=== PATIENT | male | born 1950 | race African-American/Black ===

== ENCOUNTER 2021-10-21 17:17 | Inpatient (IN) ==
[2021-10-21] MEDS ORDERED: ACETAMINOPHEN 325 MG TABLET PO PRN (20:37)
[2021-10-21] MEDS ORDERED: GLUCAGON 1 MG VIAL IM PRN (20:37)
[2021-10-21] MEDS ORDERED: DEXTROSE 10% 250 ML BAG IV PRN (20:51)
[2021-10-21] MEDS ORDERED: ENOXAPARIN 30 MG/0.3 ML SYRINGE SUBCUT SCH (21:00)
[2021-10-21] MEDS: DOCUSATE SODIUM 100 MG CAPSULE PO SCH (23:02)
[2021-10-22 01:00] LABS: Basophils % 0.2 % (0.0-0.8); Eosinophils % 0.7 % (0.00-10.9); Hematocrit 20.7 VOL% (42.0-52.0); Hemoglobin 6.9 GM/DL (14.0-18.0); Immature Granulocytes % 0.9 %; Immature Granulocytes Absolute 0.04 #; Lymphocytes # 0.8 10*3/uL (1.4-4.0); Lymphocytes % 17.9 % (21.2-54.2); Mean Corpuscular HGB Conc 33.3 GM/DL (32-36); Mean Corpuscular Volume 90.4 FL (87-102); Mean Platelet Volume 10.8 FL (9.6-12.0); Monocytes # 0.4 10*3/uL (0.11-0.8); Monocytes % 9.9 % (1.7-12.7); Neutrophils % 70.4 % (38.7-73.9); Platelet Count 113 T/CUMM (130-400); Red Blood Count 2.29 MC/CUMM (3.8-5.5); Red Cell Distribution Width 14.3 % (9.3-17.3); White Blood Count 4.4 T/CUMM (4-12)
[2021-10-22 01:26] LABS: Albumin 2.9 G/DL (3.4-5.0); Calcium 8.8 MG/DL (8.5-10.1); Phosphorous 6.3 MG/DL (2.5-4.9); Potassium 4.1 MMOL/L (3.5-5.1)
[2021-10-22 01:30] LABS: % Iron Saturation 19.4 % (18-50); Ferritin 1311.2 ng/mL (26-388)
[2021-10-22 01:35] LABS: Thyroid Stimulating Hormone 0.231 uIU/ml (0.358-3.74)
[2021-10-22 03:25] LABS: Folate 7.61 NG/ML (5.38-24.0); Vitamin B12 > 2000 PG/ML (211-911)
[2021-10-22 03:59] LABS: Hepatitis B Surface Ab Result Non-Reactive (NonReactive); Hepatitis B Surface Ag Quant < 0.10 Index; Hepatitis B Surface Ag Result Non-Reactive (NonReactive); Hepatitis C Virus Ab Quant 0.08 Index; Hepatitis C Virus Ab Result Non-Reactive (NonReactive)
[2021-10-22] MEDS: PANTOPRAZOLE 40 MG TABLET PO SCH (09:33)
[2021-10-22] MEDS: amLODIPine 10 MG TABLET PO SCH (09:33)
[2021-10-22] MEDS: hydroCHLOROthiazide 12.5 MG CAPSULE PO SCH (09:33)
[2021-10-22] MEDS: LOSARTAN 50 MG TABLET PO SCH (09:33)
[2021-10-22] MEDS: ROSUVASTATIN 20 MG TABLET PO SCH (09:33)
[2021-10-22] MEDS: allopurinoL 300 MG TABLET PO SCH (09:33)
[2021-10-22] MEDS: ALFUZOSIN 10 MG TABLET PO SCH (09:34)
[2021-10-22] MEDS: carvediloL 25 MG TABLET PO SCH ×2 (09:34→18:05)
[2021-10-22] MEDS: DOCUSATE SODIUM 100 MG CAPSULE PO SCH ×2 (09:34→22:29)
[2021-10-22 09:35] LABS: Mucus,Urine Occasional /LPF (Occasional); RBC,Urine 1 /HPF (0-4); Urine Appearance Clear (Clear); Urine Color Yellow (Yellow); Urine pH 5.5 (4.5-8.0)
[2021-10-22 09:36] LABS: Bilirubin,Urine Negative (Negative); Blood, Urine Small mg/dL (Negative); Glucose,Urine (UA) Negative (Negative); Ketones,Urine Negative (Negative); Nitrite,Urine Negative (Negative); Protein,Urine >=300 mg/dL (Negative); Urine Urobilinogen 0.2 eU/dL (<2.0)
[2021-10-22 13:07] LABS: Hematocrit 26.9 VOL% (42.0-52.0); Hemoglobin 8.9 GM/DL (14.0-18.0)
[2021-10-22] MEDS ORDERED: ENOXAPARIN 60 MG/0.6 ML SYRINGE SUBCUT SCH (21:00)
[2021-10-23 06:06] LABS: Basophils % 0.4 % (0.0-0.8); Eosinophils # 0.1 10*3/uL (0.0-0.87); Eosinophils % 1.5 % (0.00-10.9); Hematocrit 24.1 VOL% (42.0-52.0); Immature Granulocytes % 0.8 %; Immature Granulocytes Absolute 0.04 #; Lymphocytes # 0.8 10*3/uL (1.4-4.0); Lymphocytes % 16.6 % (21.2-54.2); Mean Corpuscular HGB Conc 33.2 GM/DL (32-36); Mean Corpuscular Volume 89.9 FL (87-102); Mean Platelet Volume 10.9 FL (9.6-12.0); Monocytes # 0.5 10*3/uL (0.11-0.8); Monocytes % 10.8 % (1.7-12.7); Neutrophils % 69.9 % (38.7-73.9); Platelet Count 112 T/CUMM (130-400); Red Blood Count 2.68 MC/CUMM (3.8-5.5); White Blood Count 4.7 T/CUMM (4-12)
[2021-10-23 06:27] LABS: Albumin 2.8 G/DL (3.4-5.0); Bilirubin,Total 0.6 MG/DL (0.20-1.00); Calcium 8.7 MG/DL (8.5-10.1); Osmolality,Calculated 301.7 MOS/KG (273-304); Potassium 3.8 MMOL/L (3.5-5.1); Total Protein 6.7 G/DL (6.4-8.2)
[2021-10-23 06:56] LABS: Free T4 (Free Thyroxine) 0.87 NG/DL (0.76-1.46); Total Protein 6.6 G/DL (6.4-8.2)
[2021-10-23] MEDS: ROSUVASTATIN 20 MG TABLET PO SCH (09:50)
[2021-10-23] MEDS: PANTOPRAZOLE 40 MG TABLET PO SCH (09:51)
[2021-10-23] MEDS: LOSARTAN 50 MG TABLET PO SCH (09:51)
[2021-10-23] MEDS: allopurinoL 300 MG TABLET PO SCH (09:51)
[2021-10-23] MEDS: DOCUSATE SODIUM 100 MG CAPSULE PO SCH ×2 (09:51→20:42)
[2021-10-23] MEDS: amLODIPine 10 MG TABLET PO SCH (09:51)
[2021-10-23] MEDS: carvediloL 25 MG TABLET PO SCH ×2 (09:52→17:26)
[2021-10-23] MEDS: ALFUZOSIN 10 MG TABLET PO SCH (09:52)
[2021-10-23] MEDS: hydroCHLOROthiazide 12.5 MG CAPSULE PO SCH (09:55)
[2021-10-23] MEDS: SEVELAMER CARBONATE 800 MG TABLET PO SCH (17:26)
[2021-10-23] MEDS: APIXABAN 5 MG TABLET PO SCH (20:42)
[2021-10-23] MEDS ORDERED: APIXABAN 5 MG TABLET PO SCH (21:00)
[2021-10-24 06:38] LABS: Basophils % 0.2 % (0.0-0.8); Eosinophils % 0.6 % (0.00-10.9); Hematocrit 24.1 VOL% (42.0-52.0); Hemoglobin 8.1 GM/DL (14.0-18.0); Immature Granulocytes % 0.8 %; Immature Granulocytes Absolute 0.04 #; Lymphocytes # 0.7 10*3/uL (1.4-4.0); Lymphocytes % 13.3 % (21.2-54.2); Mean Corpuscular HGB Conc 33.6 GM/DL (32-36); Mean Corpuscular Volume 90.3 FL (87-102); Mean Platelet Volume 12.9 FL (9.6-12.0); Monocytes # 0.5 10*3/uL (0.11-0.8); Monocytes % 9.7 % (1.7-12.7); Neutrophils % 75.4 % (38.7-73.9); Platelet Count 144 T/CUMM (130-400); Red Blood Count 2.67 MC/CUMM (3.8-5.5); Red Cell Distribution Width 14.1 % (9.3-17.3); White Blood Count 5.2 T/CUMM (4-12)
[2021-10-24 06:42] LABS: Calcium 8.9 MG/DL (8.5-10.1); Osmolality,Calculated 307.5 MOS/KG (273-304); Potassium 3.9 MMOL/L (3.5-5.1)
[2021-10-24] MEDS: SEVELAMER CARBONATE 800 MG TABLET PO SCH ×3 (09:34→17:28)
[2021-10-24] MEDS: DOCUSATE SODIUM 100 MG CAPSULE PO SCH ×2 (09:34→20:38)
[2021-10-24] MEDS: ALFUZOSIN 10 MG TABLET PO SCH (09:34)
[2021-10-24] MEDS: LOSARTAN 50 MG TABLET PO SCH (09:34)
[2021-10-24] MEDS: PANTOPRAZOLE 40 MG TABLET PO SCH (09:35)
[2021-10-24] MEDS: APIXABAN 5 MG TABLET PO SCH ×2 (09:35→20:39)
[2021-10-24] MEDS: allopurinoL 300 MG TABLET PO SCH (09:35)
[2021-10-24] MEDS: carvediloL 25 MG TABLET PO SCH ×2 (09:35→17:28)
[2021-10-24] MEDS: hydroCHLOROthiazide 12.5 MG CAPSULE PO SCH (09:35)
[2021-10-24] MEDS: amLODIPine 10 MG TABLET PO SCH (09:35)
[2021-10-24] MEDS: ROSUVASTATIN 20 MG TABLET PO SCH (12:36)
[2021-10-25 05:04] LABS: Basophils % 0.4 % (0.0-0.8); Eosinophils # 0.1 10*3/uL (0.0-0.87); Eosinophils % 1.7 % (0.00-10.9); Hematocrit 23.1 VOL% (42.0-52.0); Hemoglobin 7.5 GM/DL (14.0-18.0); Immature Granulocytes % 0.8 %; Immature Granulocytes Absolute 0.04 #; Lymphocytes # 0.8 10*3/uL (1.4-4.0); Lymphocytes % 17.7 % (21.2-54.2); Mean Corpuscular HGB Conc 32.5 GM/DL (32-36); Mean Corpuscular Volume 90.9 FL (87-102); Mean Platelet Volume 13.3 FL (9.6-12.0); Monocytes # 0.5 10*3/uL (0.11-0.8); Monocytes % 10.8 % (1.7-12.7); Neutrophils % 68.6 % (38.7-73.9); Platelet Count 134 T/CUMM (130-400); Red Blood Count 2.54 MC/CUMM (3.8-5.5); White Blood Count 4.7 T/CUMM (4-12)
[2021-10-25 05:16] LABS: Calcium 8.7 MG/DL (8.5-10.1); Osmolality,Calculated 308.5 MOS/KG (273-304); Potassium 4.2 MMOL/L (3.5-5.1)
[2021-10-25] MEDS: hydroCHLOROthiazide 12.5 MG CAPSULE PO SCH (08:37)
[2021-10-25] MEDS: SEVELAMER CARBONATE 800 MG TABLET PO SCH ×3 (08:37→16:16)
[2021-10-25] MEDS: ROSUVASTATIN 20 MG TABLET PO SCH (08:37)
[2021-10-25] MEDS: carvediloL 25 MG TABLET PO SCH ×2 (08:37→16:16)
[2021-10-25] MEDS: DOCUSATE SODIUM 100 MG CAPSULE PO SCH ×2 (08:37→22:43)
[2021-10-25] MEDS: ALFUZOSIN 10 MG TABLET PO SCH (08:38)
[2021-10-25] MEDS: allopurinoL 300 MG TABLET PO SCH (08:38)
[2021-10-25] MEDS: PANTOPRAZOLE 40 MG TABLET PO SCH (08:38)
[2021-10-25] MEDS: amLODIPine 10 MG TABLET PO SCH (08:38)
[2021-10-25] MEDS: LOSARTAN 50 MG TABLET PO SCH (08:38)
[2021-10-25 09:39] LABS: Protein/Creatinine Ratio,Urine 1.7 RATIO
[2021-10-25] MEDS: APIXABAN 5 MG TABLET PO SCH ×2 (11:31→22:43)
[2021-10-26 06:24] LABS: Basophils % 0.2 % (0.0-0.8); Eosinophils # 0.1 10*3/uL (0.0-0.87); Eosinophils % 2.1 % (0.00-10.9); Hematocrit 23.7 VOL% (42.0-52.0); Hemoglobin 7.7 GM/DL (14.0-18.0); Immature Granulocytes % 0.6 %; Immature Granulocytes Absolute 0.03 #; Lymphocytes # 0.9 10*3/uL (1.4-4.0); Lymphocytes % 17.7 % (21.2-54.2); Mean Corpuscular HGB Conc 32.5 GM/DL (32-36); Mean Corpuscular Volume 90.5 FL (87-102); Mean Platelet Volume 11.3 FL (9.6-12.0); Monocytes # 0.5 10*3/uL (0.11-0.8); Monocytes % 9.9 % (1.7-12.7); Neutrophils % 69.5 % (38.7-73.9); Platelet Count 123 T/CUMM (130-400); Red Blood Count 2.62 MC/CUMM (3.8-5.5); Red Cell Distribution Width 14.1 % (9.3-17.3); White Blood Count 4.9 T/CUMM (4-12)
[2021-10-26 06:59] LABS: Calcium 8.9 MG/DL (8.5-10.1); Osmolality,Calculated 305.7 MOS/KG (273-304); Potassium 4.2 MMOL/L (3.5-5.1)
[2021-10-26 07:15] LABS: Random Urine Protein (Bench) 350 MG/DL (<11.9)
[2021-10-26 07:15] LABS: Immunoglobulin A (Chem) 335 MG/DL (70-400); Immunoglobulin G (Chem) 1580 MG/DL (700-1600); Immunoglobulin M (Chem) 52 MG/DL (40-230); Total Protein (Chem) 6.6 G/DL (6.4-8.3)
[2021-10-26] MEDS: ROSUVASTATIN 20 MG TABLET PO SCH (08:31)
[2021-10-26] MEDS: ALFUZOSIN 10 MG TABLET PO SCH (08:32)
[2021-10-26] MEDS: PANTOPRAZOLE 40 MG TABLET PO SCH (08:32)
[2021-10-26] MEDS: LOSARTAN 50 MG TABLET PO SCH (08:32)
[2021-10-26] MEDS: hydroCHLOROthiazide 12.5 MG CAPSULE PO SCH (08:32)
[2021-10-26] MEDS: DOCUSATE SODIUM 100 MG CAPSULE PO SCH ×2 (08:32→22:00)
[2021-10-26] MEDS: allopurinoL 300 MG TABLET PO SCH (08:33)
[2021-10-26] MEDS: SEVELAMER CARBONATE 800 MG TABLET PO SCH ×3 (08:33→17:22)
[2021-10-26] MEDS: amLODIPine 10 MG TABLET PO SCH (08:33)
[2021-10-26] MEDS: carvediloL 25 MG TABLET PO SCH ×2 (08:33→17:22)
[2021-10-26] MEDS: APIXABAN 5 MG TABLET PO SCH ×2 (08:33→22:00)
[2021-10-26 09:57] LABS: Albumin (SPE) 3.7 G/DL (3.2-5.3); Albumin (SPE) Rel % 55.4 %; Alpha 1 (SPE) 0.3 G/DL (0.1-0.4); Alpha 1 (SPE) Rel % 4.3 %; Alpha 2 (SPE) 0.6 G/DL (0.4-1.0); Alpha 2 (SPE) Rel % 8.5 %; Beta (SPE) 0.8 G/DL (0.5-1.1); Beta (SPE) Rel % 12.2 %; Gamma (SPE) Rel % 19.6 %
[2021-10-26 10:02] LABS: Albumin (UPER) 264.2 MG/DL; Albumin (UPER) Rel% 75.5 %; Alpha 1 (UPER) 15.8 MG/DL; Alpha 1 (UPER) Rel% 4.5 %; Alpha 2 (UPER) 6.7 MG/DL; Alpha 2 (UPER) Rel % 1.9 %; Beta (UPER) Rel % 3.7 %; Gamma (UPER) Rel % 14.4 %
[2021-10-26 10:03] LABS: Gamma (SPE) 1.3 G/DL (0.7-1.7)
[2021-10-26 10:30] LABS: Gamma (UPER) 50.4 MG/DL
[2021-10-27 04:40] LABS: Basophils % 0.2 % (0.0-0.8); Eosinophils # 0.1 10*3/uL (0.0-0.87); Eosinophils % 1.8 % (0.00-10.9); Hematocrit 22.1 VOL% (42.0-52.0); Hemoglobin 7.3 GM/DL (14.0-18.0); Immature Granulocytes % 0.7 %; Immature Granulocytes Absolute 0.03 #; Lymphocytes # 0.7 10*3/uL (1.4-4.0); Mean Corpuscular Volume 90.2 FL (87-102); Mean Platelet Volume 10.5 FL (9.6-12.0); Monocytes # 0.5 10*3/uL (0.11-0.8); Monocytes % 10.6 % (1.7-12.7); Neutrophils % 71.7 % (38.7-73.9); Platelet Count 113 T/CUMM (130-400); Red Blood Count 2.45 MC/CUMM (3.8-5.5); Red Cell Distribution Width 13.8 % (9.3-17.3); White Blood Count 4.3 T/CUMM (4-12)
[2021-10-27 05:16] LABS: Calcium 8.6 MG/DL (8.5-10.1); Osmolality,Calculated 312.7 MOS/KG (273-304); Potassium 4.5 MMOL/L (3.5-5.1)
[2021-10-27] MEDS: hydroCHLOROthiazide 12.5 MG CAPSULE PO SCH (09:04)
[2021-10-27] MEDS: ALFUZOSIN 10 MG TABLET PO SCH (09:04)
[2021-10-27] MEDS: DOCUSATE SODIUM 100 MG CAPSULE PO SCH ×2 (09:04→21:45)
[2021-10-27] MEDS: APIXABAN 5 MG TABLET PO SCH ×2 (09:04→21:46)
[2021-10-27] MEDS: allopurinoL 300 MG TABLET PO SCH (09:04)
[2021-10-27] MEDS: ROSUVASTATIN 20 MG TABLET PO SCH (09:04)
[2021-10-27] MEDS: carvediloL 25 MG TABLET PO SCH ×2 (09:04→16:47)
[2021-10-27] MEDS: PANTOPRAZOLE 40 MG TABLET PO SCH (09:04)
[2021-10-27] MEDS: SEVELAMER CARBONATE 800 MG TABLET PO SCH ×3 (09:04→16:47)
[2021-10-27] MEDS: LOSARTAN 50 MG TABLET PO SCH (09:05)
[2021-10-27] MEDS: amLODIPine 10 MG TABLET PO SCH (09:05)
[2021-10-27 12:15] LABS: Kappa Free Light Chain 24.8 mg/dL; Lambda Free Light Chain 17.4 mg/dL
[2021-10-28 04:42] LABS: Basophils % 0.2 % (0.0-0.8); Eosinophils # 0.1 10*3/uL (0.0-0.87); Eosinophils % 1.4 % (0.00-10.9); Hematocrit 21.2 VOL% (42.0-52.0); Immature Granulocytes % 0.5 %; Immature Granulocytes Absolute 0.02 #; Lymphocytes # 0.9 10*3/uL (1.4-4.0); Lymphocytes % 20.2 % (21.2-54.2); Mean Platelet Volume 10.6 FL (9.6-12.0); Monocytes # 0.5 10*3/uL (0.11-0.8); Monocytes % 10.4 % (1.7-12.7); Neutrophils % 67.3 % (38.7-73.9); Platelet Count 111 T/CUMM (130-400); Red Blood Count 2.33 MC/CUMM (3.8-5.5); Red Cell Distribution Width 13.9 % (9.3-17.3); White Blood Count 4.3 T/CUMM (4-12)
[2021-10-28 05:12] LABS: Calcium 8.7 MG/DL (8.5-10.1); Osmolality,Calculated 308.8 MOS/KG (273-304); Potassium 4.6 MMOL/L (3.5-5.1)
[2021-10-28] MEDS ORDERED: SODIUM CHLORIDE 0.9% 250 ML IV SCH (11:00)
[2021-10-28] MEDS ORDERED: propofoL 200 MG/20 ML VIAL IV ONE (11:29)
[2021-10-28] MEDS ORDERED: MIDAZOLAM 2 MG/2 ML VIAL ONE (11:29)
[2021-10-28] MEDS ORDERED: LIDOCAINE 2% 5 ML VIAL ONE (11:29)
[2021-10-28] MEDS ORDERED: fentaNYL 100 MCG/2 ML VIAL ONE (11:29)
[2021-10-28] MEDS ORDERED: BUPIVACAINE MPF 0.25% 10 ML VIAL ONE (11:46)
[2021-10-28] MEDS ORDERED: TISSUE ADHESIVE 1 EACH APPLICATOR TOP ONE (11:46)
[2021-10-28] MEDS ORDERED: LIDOCAINE 1%/EPI INJ 20 ML VIAL ONE (11:46)
[2021-10-28] MEDS ORDERED: HEPARIN 5,000 UNIT/1 ML VIAL ONE (12:10)
[2021-10-28] MEDS ORDERED: ONDANSETRON 4 MG/2 ML VIAL ONE (12:24)
[2021-10-28] MEDS ORDERED: ceFAZolin 1,000 MG VIAL ONE (12:24)
[2021-10-28] MEDS ORDERED: ETOMIDATE 40 MG/20 ML VIAL IV ONE (12:33)
[2021-10-28] MEDS ORDERED: PHENYLEPHRINE 1 MG/10 ML SYRINGE IV ONE (12:33)
[2021-10-28] MEDS: carvediloL 25 MG TABLET PO SCH ×2 (13:17→18:54)
[2021-10-28] MEDS: SEVELAMER CARBONATE 800 MG TABLET PO SCH ×3 (13:17→18:54)
[2021-10-28] MEDS ORDERED: HEPARIN 10,000 UNIT/10 ML VIAL IV PRN (15:25)
[2021-10-28] MEDS: APIXABAN 5 MG TABLET PO SCH ×2 (17:15→21:14)
[2021-10-28] MEDS: DOCUSATE SODIUM 100 MG CAPSULE PO SCH ×2 (17:15→21:14)
[2021-10-28] MEDS: allopurinoL 300 MG TABLET PO SCH (18:54)
[2021-10-28] MEDS: hydroCHLOROthiazide 12.5 MG CAPSULE PO SCH (18:54)
[2021-10-28] MEDS: ROSUVASTATIN 20 MG TABLET PO SCH (18:54)
[2021-10-28] MEDS: ALFUZOSIN 10 MG TABLET PO SCH (18:54)
[2021-10-28] MEDS: amLODIPine 10 MG TABLET PO SCH (18:54)
[2021-10-28] MEDS: LOSARTAN 50 MG TABLET PO SCH (18:55)
[2021-10-28] MEDS: PANTOPRAZOLE 40 MG TABLET PO SCH (18:55)
[2021-10-28] MEDS: cilostazoL 50 MG TABLET PO SCH (21:14)
[2021-10-29 04:26] LABS: Basophils % 0.2 % (0.0-0.8); Eosinophils # 0.1 10*3/uL (0.0-0.87); Eosinophils % 1.8 % (0.00-10.9); Hematocrit 22.8 VOL% (42.0-52.0); Hemoglobin 7.5 GM/DL (14.0-18.0); Immature Granulocytes % 0.7 %; Immature Granulocytes Absolute 0.03 #; Lymphocytes # 0.8 10*3/uL (1.4-4.0); Lymphocytes % 18.6 % (21.2-54.2); Mean Corpuscular HGB Conc 32.9 GM/DL (32-36); Mean Corpuscular Volume 90.5 FL (87-102); Mean Platelet Volume 11.4 FL (9.6-12.0); Monocytes # 0.5 10*3/uL (0.11-0.8); Monocytes % 12.1 % (1.7-12.7); Neutrophils % 66.6 % (38.7-73.9); Platelet Count 119 T/CUMM (130-400); Red Blood Count 2.52 MC/CUMM (3.8-5.5); Red Cell Distribution Width 13.9 % (9.3-17.3); White Blood Count 4.5 T/CUMM (4-12)
[2021-10-29 04:41] LABS: Calcium 8.3 MG/DL (8.5-10.1); Osmolality,Calculated 295.7 MOS/KG (273-304); Potassium 4.9 MMOL/L (3.5-5.1)
[2021-10-29] MEDS: SEVELAMER CARBONATE 800 MG TABLET PO SCH ×3 (12:12→16:10)
[2021-10-29] MEDS: APIXABAN 5 MG TABLET PO SCH ×2 (12:26→20:11)
[2021-10-29] MEDS: allopurinoL 300 MG TABLET PO SCH (12:26)
[2021-10-29] MEDS: ALFUZOSIN 10 MG TABLET PO SCH (12:26)
[2021-10-29] MEDS: PANTOPRAZOLE 40 MG TABLET PO SCH (12:26)
[2021-10-29] MEDS: cilostazoL 50 MG TABLET PO SCH ×2 (12:26→20:11)
[2021-10-29] MEDS: carvediloL 25 MG TABLET PO SCH ×2 (12:26→16:10)
[2021-10-29] MEDS: amLODIPine 10 MG TABLET PO SCH (12:27)
[2021-10-29] MEDS: DOCUSATE SODIUM 100 MG CAPSULE PO SCH ×2 (12:27→20:11)
[2021-10-29] MEDS: hydroCHLOROthiazide 12.5 MG CAPSULE PO SCH (12:27)
[2021-10-29] MEDS: ROSUVASTATIN 20 MG TABLET PO SCH (12:27)
[2021-10-29] MEDS: LOSARTAN 50 MG TABLET PO SCH (12:27)
[2021-10-30 05:40] LABS: Basophils % 0.2 % (0.0-0.8); Eosinophils # 0.1 10*3/uL (0.0-0.87); Eosinophils % 1.9 % (0.00-10.9); Hematocrit 22.3 VOL% (42.0-52.0); Hemoglobin 7.3 GM/DL (14.0-18.0); Immature Granulocytes Absolute 0.04 #; Lymphocytes # 0.9 10*3/uL (1.4-4.0); Lymphocytes % 21.2 % (21.2-54.2); Mean Corpuscular HGB Conc 32.7 GM/DL (32-36); Mean Platelet Volume 11.9 FL (9.6-12.0); Monocytes # 0.5 10*3/uL (0.11-0.8); Monocytes % 12.4 % (1.7-12.7); Neutrophils % 63.3 % (38.7-73.9); Platelet Count 110 T/CUMM (130-400); Red Blood Count 2.45 MC/CUMM (3.8-5.5); White Blood Count 4.1 T/CUMM (4-12)
[2021-10-30 05:55] LABS: Calcium 8.6 MG/DL (8.5-10.1); Osmolality,Calculated 287.5 MOS/KG (273-304); Potassium 4.2 MMOL/L (3.5-5.1)
[2021-10-30] MEDS: SEVELAMER CARBONATE 800 MG TABLET PO SCH ×3 (08:39→16:28)
[2021-10-30] MEDS: PANTOPRAZOLE 40 MG TABLET PO SCH (14:15)
[2021-10-30] MEDS: LOSARTAN 50 MG TABLET PO SCH ×2 (14:15→14:34)
[2021-10-30] MEDS: APIXABAN 5 MG TABLET PO SCH ×2 (14:16→20:47)
[2021-10-30] MEDS: ROSUVASTATIN 20 MG TABLET PO SCH (14:16)
[2021-10-30] MEDS: ALFUZOSIN 10 MG TABLET PO SCH (14:16)
[2021-10-30] MEDS: DOCUSATE SODIUM 100 MG CAPSULE PO SCH ×2 (14:16→20:47)
[2021-10-30] MEDS: amLODIPine 10 MG TABLET PO SCH ×2 (14:16→14:34)
[2021-10-30] MEDS: carvediloL 25 MG TABLET PO SCH ×3 (14:16→16:28)
[2021-10-30] MEDS: hydroCHLOROthiazide 12.5 MG CAPSULE PO SCH (14:17)
[2021-10-30] MEDS: allopurinoL 300 MG TABLET PO SCH (14:17)
[2021-10-30] MEDS: cilostazoL 50 MG TABLET PO SCH ×2 (14:19→20:47)
[2021-10-30] MEDS ORDERED: MAGNESIUM HYDROXIDE SUSP 30 ML UDCUP PO PRN (14:35)
[2021-10-30] MEDS: POLYETHYLENE GLYCOL POWDER 17 GM PACK PO SCH (14:55)
[2021-10-31 05:13] LABS: Eosinophils % 0.4 % (0.00-10.9); Hematocrit 24.1 VOL% (42.0-52.0); Hemoglobin 7.9 GM/DL (14.0-18.0); Immature Granulocytes % 0.6 %; Immature Granulocytes Absolute 0.03 #; Lymphocytes # 0.9 10*3/uL (1.4-4.0); Lymphocytes % 18.8 % (21.2-54.2); Mean Corpuscular HGB Conc 32.8 GM/DL (32-36); Mean Corpuscular Volume 90.9 FL (87-102); Mean Platelet Volume 12.9 FL (9.6-12.0); Monocytes # 0.5 10*3/uL (0.11-0.8); Monocytes % 10.6 % (1.7-12.7); Neutrophils % 69.6 % (38.7-73.9); Platelet Count 134 T/CUMM (130-400); Red Blood Count 2.65 MC/CUMM (3.8-5.5); Red Cell Distribution Width 13.9 % (9.3-17.3); White Blood Count 4.6 T/CUMM (4-12)
[2021-10-31 05:46] LABS: Calcium 9.2 MG/DL (8.5-10.1); Osmolality,Calculated 281.7 MOS/KG (273-304); Potassium 5.1 MMOL/L (3.5-5.1)
[2021-10-31] MEDS: SEVELAMER CARBONATE 800 MG TABLET PO SCH ×3 (08:54→16:25)
[2021-10-31] MEDS: carvediloL 25 MG TABLET PO SCH ×2 (08:54→16:25)
[2021-10-31] MEDS: ROSUVASTATIN 20 MG TABLET PO SCH (08:54)
[2021-10-31] MEDS: LOSARTAN 50 MG TABLET PO SCH (08:54)
[2021-10-31] MEDS: cilostazoL 50 MG TABLET PO SCH ×2 (08:54→20:32)
[2021-10-31] MEDS: PANTOPRAZOLE 40 MG TABLET PO SCH (08:55)
[2021-10-31] MEDS: APIXABAN 5 MG TABLET PO SCH ×2 (08:55→20:32)
[2021-10-31] MEDS: POLYETHYLENE GLYCOL POWDER 17 GM PACK PO SCH ×2 (08:55→09:04)
[2021-10-31] MEDS: hydroCHLOROthiazide 12.5 MG CAPSULE PO SCH (08:55)
[2021-10-31] MEDS: amLODIPine 10 MG TABLET PO SCH (08:55)
[2021-10-31] MEDS: ALFUZOSIN 10 MG TABLET PO SCH (08:55)
[2021-10-31] MEDS: DOCUSATE SODIUM 100 MG CAPSULE PO SCH ×2 (08:57→20:32)
[2021-10-31] MEDS: allopurinoL 300 MG TABLET PO SCH (08:58)
[2021-11-01 05:04] LABS: Basophils % 0.5 % (0.0-0.8); Eosinophils # 0.1 10*3/uL (0.0-0.87); Hematocrit 22.8 VOL% (42.0-52.0); Hemoglobin 7.4 GM/DL (14.0-18.0); Immature Granulocytes % 0.9 %; Immature Granulocytes Absolute 0.04 #; Lymphocytes % 23.5 % (21.2-54.2); Mean Corpuscular HGB Conc 32.5 GM/DL (32-36); Mean Corpuscular Volume 91.2 FL (87-102); Monocytes # 0.5 10*3/uL (0.11-0.8); Monocytes % 12.2 % (1.7-12.7); Neutrophils % 60.9 % (38.7-73.9); Platelet Count 108 T/CUMM (130-400); Red Cell Distribution Width 13.8 % (9.3-17.3); White Blood Count 4.4 T/CUMM (4-12)
[2021-11-01 05:29] LABS: Calcium 8.5 MG/DL (8.5-10.1); Osmolality,Calculated 282.8 MOS/KG (273-304); Potassium 5.3 MMOL/L (3.5-5.1)
[2021-11-01] MEDS: ROSUVASTATIN 20 MG TABLET PO SCH (08:17)
[2021-11-01] MEDS: DOCUSATE SODIUM 100 MG CAPSULE PO SCH ×2 (08:17→20:57)
[2021-11-01] MEDS: carvediloL 25 MG TABLET PO SCH ×2 (08:17→16:42)
[2021-11-01] MEDS: PANTOPRAZOLE 40 MG TABLET PO SCH (08:17)
[2021-11-01] MEDS: APIXABAN 5 MG TABLET PO SCH ×2 (08:17→20:57)
[2021-11-01] MEDS: POLYETHYLENE GLYCOL POWDER 17 GM PACK PO SCH ×2 (08:18→09:41)
[2021-11-01] MEDS: SEVELAMER CARBONATE 800 MG TABLET PO SCH ×3 (08:18→16:41)
[2021-11-01] MEDS: allopurinoL 300 MG TABLET PO SCH (08:18)
[2021-11-01] MEDS: hydroCHLOROthiazide 12.5 MG CAPSULE PO SCH (08:18)
[2021-11-01] MEDS: cilostazoL 50 MG TABLET PO SCH ×2 (08:18→20:57)
[2021-11-01] MEDS: ALFUZOSIN 10 MG TABLET PO SCH (08:18)
[2021-11-01] MEDS: amLODIPine 10 MG TABLET PO SCH (09:41)
[2021-11-01] MEDS: LOSARTAN 50 MG TABLET PO SCH (09:41)
[2021-11-01] MEDS ORDERED: TUBERCULIN SKIN TEST 0.1 ML SYRINGE INTRADERM ONE (15:39)
[2021-11-01] MEDS: SODIUM CHLORIDE 0.9% 250 ML IV SCH (22:38)
[2021-11-02] MEDS: SODIUM CHLORIDE 0.9% 250 ML IV SCH ×7 (00:07→22:13)
[2021-11-02 05:53] LABS: Basophils % 0.5 % (0.0-0.8); Eosinophils # 0.1 10*3/uL (0.0-0.87); Eosinophils % 1.6 % (0.00-10.9); Hematocrit 23.3 VOL% (42.0-52.0); Hemoglobin 7.4 GM/DL (14.0-18.0); Immature Granulocytes % 0.9 %; Immature Granulocytes Absolute 0.04 #; Lymphocytes % 22.6 % (21.2-54.2); Mean Corpuscular HGB Conc 31.8 GM/DL (32-36); Mean Corpuscular Volume 93.2 FL (87-102); Monocytes # 0.5 10*3/uL (0.11-0.8); Monocytes % 11.2 % (1.7-12.7); Neutrophils % 63.2 % (38.7-73.9); Platelet Count 104 T/CUMM (130-400); Red Cell Distribution Width 13.8 % (9.3-17.3); White Blood Count 4.3 T/CUMM (4-12)
[2021-11-02 06:06] LABS: Phosphorous 2.4 MG/DL (2.5-4.9)
[2021-11-02 06:07] LABS: Calcium 8.7 MG/DL (8.5-10.1); Osmolality,Calculated 279.7 MOS/KG (273-304); Potassium 4.3 MMOL/L (3.5-5.1)
[2021-11-02] MEDS: POLYETHYLENE GLYCOL POWDER 17 GM PACK PO SCH ×2 (08:36)
[2021-11-02] MEDS: ROSUVASTATIN 20 MG TABLET PO SCH (08:37)
[2021-11-02] MEDS: amLODIPine 10 MG TABLET PO SCH ×2 (08:37→08:40)
[2021-11-02] MEDS: carvediloL 12.5 MG TABLET PO SCH ×2 (08:37→17:30)
[2021-11-02] MEDS: SEVELAMER CARBONATE 800 MG TABLET PO SCH ×3 (08:37→17:30)
[2021-11-02] MEDS: PANTOPRAZOLE 40 MG TABLET PO SCH (08:37)
[2021-11-02] MEDS: DOCUSATE SODIUM 100 MG CAPSULE PO SCH ×2 (08:37→20:12)
[2021-11-02] MEDS: cilostazoL 50 MG TABLET PO SCH ×2 (08:37→20:13)
[2021-11-02] MEDS: ALFUZOSIN 10 MG TABLET PO SCH (08:37)
[2021-11-02] MEDS: LOSARTAN 50 MG TABLET PO SCH ×2 (08:37→08:41)
[2021-11-02] MEDS: allopurinoL 300 MG TABLET PO SCH (08:37)
[2021-11-03 05:10] LABS: Basophils % 0.2 % (0.0-0.8); Eosinophils # 0.1 10*3/uL (0.0-0.87); Eosinophils % 1.9 % (0.00-10.9); Hematocrit 23.1 VOL% (42.0-52.0); Hemoglobin 7.5 GM/DL (14.0-18.0); Immature Granulocytes % 0.9 %; Immature Granulocytes Absolute 0.05 #; Lymphocytes # 0.9 10*3/uL (1.4-4.0); Lymphocytes % 16.4 % (21.2-54.2); Mean Corpuscular HGB Conc 32.5 GM/DL (32-36); Mean Corpuscular Volume 91.3 FL (87-102); Mean Platelet Volume 13.3 FL (9.6-12.0); Monocytes # 0.7 10*3/uL (0.11-0.8); Neutrophils % 68.6 % (38.7-73.9); Platelet Count 104 T/CUMM (130-400); Red Blood Count 2.53 MC/CUMM (3.8-5.5); Red Cell Distribution Width 13.6 % (9.3-17.3); White Blood Count 5.7 T/CUMM (4-12)
[2021-11-03 05:19] LABS: Calcium 8.6 MG/DL (8.5-10.1)
[2021-11-03] MEDS: ROSUVASTATIN 20 MG TABLET PO SCH (08:13)
[2021-11-03] MEDS: SEVELAMER CARBONATE 800 MG TABLET PO SCH ×3 (08:13→16:50)
[2021-11-03] MEDS: cilostazoL 50 MG TABLET PO SCH ×2 (08:13→20:58)
[2021-11-03] MEDS: DOCUSATE SODIUM 100 MG CAPSULE PO SCH ×2 (08:13→20:58)
[2021-11-03] MEDS: PANTOPRAZOLE 40 MG TABLET PO SCH (08:13)
[2021-11-03] MEDS: allopurinoL 300 MG TABLET PO SCH (08:13)
[2021-11-03] MEDS: ALFUZOSIN 10 MG TABLET PO SCH (08:13)
[2021-11-03] MEDS: amLODIPine 10 MG TABLET PO SCH (08:14)
[2021-11-03] MEDS: POLYETHYLENE GLYCOL POWDER 17 GM PACK PO SCH (08:14)
[2021-11-03] MEDS: LOSARTAN 50 MG TABLET PO SCH (08:15)
[2021-11-03] MEDS: carvediloL 12.5 MG TABLET PO SCH ×2 (08:16→16:50)
[2021-11-04 05:25] LABS: Basophils % 0.2 % (0.0-0.8); Eosinophils # 0.1 10*3/uL (0.0-0.87); Eosinophils % 2.2 % (0.00-10.9); Hematocrit 21.8 VOL% (42.0-52.0); Hemoglobin 7.2 GM/DL (14.0-18.0); Immature Granulocytes Absolute 0.04 #; Lymphocytes # 0.9 10*3/uL (1.4-4.0); Lymphocytes % 21.9 % (21.2-54.2); Mean Corpuscular Volume 91.6 FL (87-102); Monocytes # 0.6 10*3/uL (0.11-0.8); Neutrophils % 60.7 % (38.7-73.9); Platelet Count 100 T/CUMM (130-400); Red Blood Count 2.38 MC/CUMM (3.8-5.5); Red Cell Distribution Width 13.5 % (9.3-17.3); White Blood Count 4.1 T/CUMM (4-12)
[2021-11-04 05:44] LABS: Calcium 8.6 MG/DL (8.5-10.1); Osmolality,Calculated 278.1 MOS/KG (273-304); Potassium 4.2 MMOL/L (3.5-5.1)
[2021-11-04] MEDS ORDERED: SODIUM CHLORIDE 0.9% 1,000 ML IV SCH (08:00)
[2021-11-04] MEDS: carvediloL 12.5 MG TABLET PO SCH ×2 (08:16→16:23)
[2021-11-04] MEDS: allopurinoL 300 MG TABLET PO SCH (08:17)
[2021-11-04] MEDS: POLYETHYLENE GLYCOL POWDER 17 GM PACK PO SCH (08:17)
[2021-11-04] MEDS: ALFUZOSIN 10 MG TABLET PO SCH (08:17)
[2021-11-04] MEDS: DOCUSATE SODIUM 100 MG CAPSULE PO SCH ×2 (08:17→21:20)
[2021-11-04] MEDS: LOSARTAN 50 MG TABLET PO SCH (08:17)
[2021-11-04] MEDS: cilostazoL 50 MG TABLET PO SCH ×2 (08:17→21:20)
[2021-11-04] MEDS: SEVELAMER CARBONATE 800 MG TABLET PO SCH ×3 (08:17→16:23)
[2021-11-04] MEDS: PANTOPRAZOLE 40 MG TABLET PO SCH (08:17)
[2021-11-04] MEDS: ROSUVASTATIN 20 MG TABLET PO SCH (08:17)
[2021-11-04] MEDS: amLODIPine 10 MG TABLET PO SCH (08:17)
[2021-11-04] MEDS ORDERED: propofoL 200 MG/20 ML VIAL IV ONE (10:14)
[2021-11-04] MEDS ORDERED: LIDOCAINE 2% 5 ML VIAL ONE (10:14)
[2021-11-04] MEDS ORDERED: PHENYLEPHRINE 1 MG/10 ML SYRINGE IV ONE (10:15)
[2021-11-04] MEDS ORDERED: BISACODYL 5 MG TABLET PO ONE (12:00)
[2021-11-04] MEDS ORDERED: SODIUM CHLORIDE 0.9% 1,000 ML IV PRN (12:34)
[2021-11-04] MEDS ORDERED: POLYETHYLENE GLYCOL POWDER 255 GM BOTTLE PO ONE (18:00)
[2021-11-05 04:23] LABS: Basophils % 0.2 % (0.0-0.8); Eosinophils # 0.1 10*3/uL (0.0-0.87); Eosinophils % 1.9 % (0.00-10.9); Hematocrit 22.8 VOL% (42.0-52.0); Hemoglobin 7.4 GM/DL (14.0-18.0); Immature Granulocytes % 0.7 %; Immature Granulocytes Absolute 0.03 #; Lymphocytes # 0.8 10*3/uL (1.4-4.0); Lymphocytes % 18.9 % (21.2-54.2); Mean Corpuscular HGB Conc 32.5 GM/DL (32-36); Mean Corpuscular Volume 91.6 FL (87-102); Mean Platelet Volume 11.4 FL (9.6-12.0); Monocytes # 0.5 10*3/uL (0.11-0.8); Monocytes % 13.1 % (1.7-12.7); Neutrophils % 65.2 % (38.7-73.9); Platelet Count 102 T/CUMM (130-400); Red Blood Count 2.49 MC/CUMM (3.8-5.5); Red Cell Distribution Width 13.8 % (9.3-17.3); White Blood Count 4.1 T/CUMM (4-12)
[2021-11-05 04:48] LABS: Calcium 8.7 MG/DL (8.5-10.1); Osmolality,Calculated 281.1 MOS/KG (273-304); Potassium 3.9 MMOL/L (3.5-5.1)
[2021-11-05 07:36] VITALS: BP 124/62
[2021-11-05] MEDS ORDERED: EPOETIN ALFA-EPBX 10,000 UNIT/ML VIAL IV SCH (14:00)
== END 2021-11-05 14:04 | disposition home health service (06) | DRG 592 ==
LOC: N.3E → SUATTDRO 19:27
PROVIDERS: ADMIT Internal Medicine; ATTEND Internal Medicine